=== PATIENT | female | born 1990 | race Two or more races ===

== ENCOUNTER → 2017-08-04 | Outpatient (REF) | payer OTHER ==
[2017-08-04 12:11] LABS: CHOLESTEROL LEVEL 179 MG/DL (<200); FERRITIN 34 NG/ML (8-252); FREE T4 1.25 NG/DL (0.76-1.46); TRIGLYCERIDES LEVEL 85 MG/DL (<150)
[2017-08-04 12:17] LABS: MEAN CORPUSCULAR HEMOGLOBIN 30.9 pg (27.0-33.0); MEAN CORPUSCULAR HGB CONC 33.3 g/dl (32.0-36.5); MEAN CORPUSCULAR VOLUME 92.6 fl (80.0-96.0); PLATELET COUNT, AUTOMATED 370 10^3/uL (150-450); RED CELL DISTRIBUTION WIDTH 11.7 % (11.5-14.5); WHITE BLOOD COUNT 4.4 10^3/uL (4.0-10.0)
[2017-08-04 13:10] LABS: VITAMIN B12 LEVEL 618 PG/ML (247-911)
== END ==
LOC: M SFHCCLAY 09:26
PROVIDERS: ATTEND Family Medicine
DX: Z00.00 Encounter for general adult medical examination without abnormal findings (principal); G43.109 Migraine with aura, not intractable, without status migrainosus

== ENCOUNTER → 2018-04-21 | Outpatient (REF) | payer OTHER | LOC: M LAB REF 18:26 | DX: Z12.4 Encounter for screening for malignant neoplasm of cervix (principal) ==

== ENCOUNTER → 2018-06-03 | Outpatient (REF) | payer OTHER ==
[2018-06-03 12:19] LABS: CHOLESTEROL LEVEL 152 MG/DL (<200); CHOLESTEROL RISK RATIO 2.375 (<5); HDL CHOLESTEROL 64 MG/DL (>40); LDL CHOLESTEROL 71 MG/DL (<100); NON-HDL-C 88 MG/DL; TRIGLYCERIDES LEVEL 83 MG/DL (<150)
== END ==
LOC: M LABDRAWC 11:19
DX: I63.9 Cerebral infarction, unspecified (principal)

== ENCOUNTER → 2018-07-08 | Outpatient (REF) | payer OTHER ==
[2018-07-09 11:37] LABS: INR 1.11; PROTHROMBIN TIME 14.5 SECONDS (12.1-14.4)
== END ==
LOC: M LABDRAWC 07-09 11:03
DX: I63.9 Cerebral infarction, unspecified (principal); Z79.01 Long term (current) use of anticoagulants

== ENCOUNTER → 2018-07-16 | Outpatient (REF) | payer OTHER ==
[2018-07-17 12:18] LABS: ANION GAP 9 MEQ/L (8-16); BLOOD UREA NITROGEN 9 MG/DL (7-18); CALCIUM LEVEL 9.9 MG/DL (8.5-10.1); CARBON DIOXIDE LEVEL 26 MEQ/L (21-32); CHLORIDE LEVEL 104 MEQ/L (98-107); CREATININE FOR GFR 0.63 MG/DL (0.55-1.30); GLOMERULAR FILTRATION RATE > 60.0 (>60); GLUCOSE, FASTING 75 MG/DL (70-100); POTASSIUM SERUM 4.2 MEQ/L (3.5-5.1); SODIUM LEVEL 139 MEQ/L (136-145)
[2018-07-17 12:23] LABS: BASO % 0.5 % (0.0-1.0); EOS % 0.5 % (0.0-3.0); HEMATOCRIT 40.6 % (36.0-47.0); HEMOGLOBIN 13.6 g/dl (12.0-15.5); IMMATURE GRANULOCYTE % 0.2 % (0-3.0); LYMPH # 2.2 10^3/uL (1.5-6.5); LYMPH % 38.7 % (24.0-44.0); MEAN CORPUSCULAR HEMOGLOBIN 30.6 pg (27.0-33.0); MEAN CORPUSCULAR HGB CONC 33.5 g/dl (32.0-36.5); MEAN CORPUSCULAR VOLUME 91.2 fl (80.0-96.0); MONO # 0.4 10^3/uL (0.0-0.8); MONO % 6.8 % (0.0-5.0); NEUTROPHILS % 53.3 % (36.0-66.0); PLATELET COUNT, AUTOMATED 316 10^3/uL (150-450); RED BLOOD COUNT 4.45 10^6/uL (4.00-5.40); RED CELL DISTRIBUTION WIDTH 11.1 % (11.5-14.5); WHITE BLOOD COUNT 5.6 10^3/uL (4.0-10.0)
== END ==
LOC: M LABDRAWC 11:47
DX: Q21.1 Atrial septal defect (principal)

== ENCOUNTER → 2018-07-16 | Outpatient (REF) | payer OTHER ==
[2018-07-17 12:32] LABS: INR 1.15; PROTHROMBIN TIME 14.9 SECONDS (12.1-14.4)
== END ==
LOC: M LABDRAWC 07-17 11:49
DX: I63.9 Cerebral infarction, unspecified (principal); Z79.01 Long term (current) use of anticoagulants

== ENCOUNTER 2019-03-28 10:43 | Emergency (ER) | payer MEDICAID, OTHER ==
[~2019-03-28] VITALS: Ht 154.9 cm; Wt 57.0 kg
[~2019-03-28 10:43] MED LIST: ADVI200C5 PO; JOLETAB; PERC5TAB12 PO
[2019-03-28 10:44] VITALS: BP 119/89
[2019-03-28] MEDS ORDERED: ASPI81TA85 PO (10:52)
[2019-03-28 11:43] LABS: BASO % 0.6 % (0.0-1.0); EOS # 0.1 10^3/uL (0.0-0.50); EOS % 1.1 % (0.0-3.0); HEMATOCRIT 41.6 % (36.0-47.0); LYMPH # 1.6 10^3/uL (1.5-6.5); MEAN CORPUSCULAR HEMOGLOBIN 31.8 pg (27.0-33.0); MEAN CORPUSCULAR HGB CONC 33.7 g/dl (32.0-36.5); MEAN CORPUSCULAR VOLUME 94.5 fl (80.0-96.0); MONO # 0.3 10^3/uL (0.0-0.8); MONO % 6.2 % (0.0-5.0); NEUTROPHILS # 2.7 10^3/uL (1.8-7.7); NEUTROPHILS % 56.9 % (36.0-66.0); PLATELET COUNT, AUTOMATED 287 10^3/uL (150-450); WHITE BLOOD COUNT 4.7 10^3/uL (4.0-10.0)
[2019-03-28 12:06] LABS: BLOOD UREA NITROGEN 8 MG/DL (7-18); CALCIUM LEVEL 9.1 MG/DL (8.5-10.1); CARBON DIOXIDE LEVEL 29 MEQ/L (21-32); CHLORIDE LEVEL 109 MEQ/L (98-107); CREATININE FOR GFR 0.71 MG/DL (0.55-1.30); GLOMERULAR FILTRATION RATE > 60.0 (>60); GLUCOSE, FASTING 88 MG/DL (70-100); POTASSIUM SERUM 4.3 MEQ/L (3.5-5.1); SODIUM LEVEL 143 MEQ/L (136-145)
[2019-03-28] MEDS ORDERED: ONDA4TAB6 PO (12:11)
[2019-03-28] MEDS ORDERED: ONDANSETRON 4 MG ORAL DISINTEGRATING TAB (Q0162 PER 1MG) PO ONE (12:15)
== END 2019-03-28 12:19 | disposition home or self-care (01) ==
LOC: M ED 10:43
DX: R11.0 Nausea (principal); R42 Dizziness and giddiness; R53.83 Other fatigue; Z86.73 Personal history of transient ischemic attack (TIA), and cerebral infarction without residual deficits; Z79.82 Long term (current) use of aspirin
CPT/HCPCS: 36415; 80048; 81001; 84702; 85025; 99283; Q0162

== ENCOUNTER → 2019-04-30 | Outpatient (REF) | payer MEDICAID ==
[~2019-04-30] MED LIST changes: +ASPI81TA85 PO; +ONDA4TAB6 PO
== END ==
LOC: M LAB REF 17:15
PROVIDERS: ATTEND Advanced Practice Midwife
DX: Z12.4 Encounter for screening for malignant neoplasm of cervix (principal)

== ENCOUNTER → 2019-06-01 | Outpatient (REF) | payer MEDICAID ==
[2019-06-01 19:51] LABS: BASO % 0.5 % (0.0-1.0); EOS # 0.1 10^3/uL (0.0-0.5); EOS % 1.4 % (0.0-3.0); HEMATOCRIT 40.1 % (36.0-47.0); HEMOGLOBIN 13.3 g/dl (12.0-15.5); LYMPH # 1.8 10^3/uL (1.5-5.0); LYMPH % 33.3 % (24.0-44.0); MEAN CORPUSCULAR HEMOGLOBIN 30.6 pg (27.0-33.0); MEAN CORPUSCULAR HGB CONC 33.2 g/dl (32.0-36.5); MEAN CORPUSCULAR VOLUME 92.4 fl (80.0-96.0); MONO # 0.3 10^3/uL (0.0-0.8); MONO % 5.6 % (0.0-5.0); NEUTROPHILS # 3.2 10^3/uL (1.5-8.5); NEUTROPHILS % 58.8 % (36.0-66.0); PLATELET COUNT, AUTOMATED 336 10^3/uL (150-450); RED BLOOD COUNT 4.34 10^6/uL (4.00-5.40); WHITE BLOOD COUNT 5.5 10^3/uL (4.0-10.0)
[2019-06-01 20:11] LABS: ALBUMIN 4.2 GM/DL (3.2-5.2); ALT/SGPT 24 U/L (12-78); BILIRUBIN,TOTAL 0.5 MG/DL (0.2-1.0); BLOOD UREA NITROGEN 8 MG/DL (7-18); CALCIUM LEVEL 9.6 MG/DL (8.5-10.1); CARBON DIOXIDE LEVEL 26 MEQ/L (21-32); CHLORIDE LEVEL 108 MEQ/L (98-107); CREATININE FOR GFR 0.66 MG/DL (0.55-1.30); GLOMERULAR FILTRATION RATE > 60.0 (>60); GLUCOSE, FASTING 89 MG/DL (70-100); POTASSIUM SERUM 4.6 MEQ/L (3.5-5.1); SODIUM LEVEL 142 MEQ/L (136-145); TOTAL PROTEIN 7.2 GM/DL (6.4-8.2)
[2019-06-01 20:20] LABS: TOTAL 25(OH) VITAMIN D 21.2 NG/ML (30.0-100.0)
[2019-06-01 20:21] LABS: FOLATE 14.8 NG/ML; VITAMIN B12 LEVEL 542 PG/ML
[2019-06-09 11:48] LABS: VITAMIN B1 LEVEL WHOLE BLOOD 122.8 nmol/L (66.5-200.0); VITAMIN B6,PYRIDOXAL PHOSPHATE 7.6 ug/L (2.0-32.8); VITAMIN E(ALPHA TOCOPHEROL) 11.8 mg/L (5.9-19.4); VITAMIN E(GAMMA TOCOPHEROL) 1.4 mg/L (0.7-4.9)
== END ==
LOC: M LABDRAWC 19:10
PROVIDERS: ATTEND Psychiatry & Neurology Neurology
DX: R42 Dizziness and giddiness (principal); R51 Headache

== ENCOUNTER → 2019-06-18 | Outpatient (REF) | payer MEDICAID | LOC: M LAB REF 17:36 | PROVIDERS: ATTEND Advanced Practice Midwife | DX: R87.615 Unsatisfactory cytologic smear of cervix (principal) ==

== ENCOUNTER 2020-02-06 20:17 | Emergency (ER) | payer MEDICAID, OTHER ==
[~2020-02-06] VITALS: Ht 154.9 cm; Wt 54.5 kg
[2020-02-06 20:57] LABS: BASO % 0.4 % (0.0-1.0); EOS # 0.1 10^3/uL (0.0-0.5); EOS % 1.3 % (0.0-3.0); HEMATOCRIT 41.1 % (36.0-47.0); HEMOGLOBIN 13.7 g/dl (12.0-15.5); LYMPH # 2.2 10^3/uL (1.5-5.0); MEAN CORPUSCULAR HEMOGLOBIN 31.1 pg (27.0-33.0); MEAN CORPUSCULAR HGB CONC 33.3 g/dl (32.0-36.5); MEAN CORPUSCULAR VOLUME 93.2 fl (80.0-96.0); MONO # 0.4 10^3/uL (0.0-0.8); MONO % 7.7 % (0.0-5.0); NEUTROPHILS # 2.8 10^3/uL (1.5-8.5); NEUTROPHILS % 50.2 % (36.0-66.0); PLATELET COUNT, AUTOMATED 332 10^3/uL (150-450); RED BLOOD COUNT 4.41 10^6/uL (4.00-5.40); WHITE BLOOD COUNT 5.6 10^3/uL (4.0-10.0)
[2020-02-06] MEDS ORDERED: ISOVUE-370 76% 100ML VIAL As Ordered ONE (21:05)
[2020-02-06 21:13] LABS: INR 0.95; PARTIAL THROMBOPLASTIN TIME 26.4 SECONDS (25.0-38.4); PROTHROMBIN TIME 12.4 SECONDS (11.8-14.0)
[2020-02-06 21:24] LABS: C REACTIVE PROTEIN QUANTITATIV < 0.30 MG/DL (0.00-0.30); LDH LACTATE DEHYDROGENASE 156 U/L (84-246)
[2020-02-06 21:29] LABS: D-DIMER QUANT < 270 ng/ml (<500)
[2020-02-06 22:45] VITALS: BP 114/75
--- NOTE | 2020-02-07 20:25 | ECGEPIP ---
[facility] - ED Test Date: 2020-02-06 Pat Name: NUHA PIERRE Department: Room: - Gender: Female [employer]: : 1990 Requested By: SIOMARA ABDULLAHI Order Number: [id number] Reading MD: Kyle Bustamante Measurements Intervals [place] Rate: 75 P: -4 AK: 122 QRS: 7 QRSD: 92 T: 21 QT: 397 QTc: 444 Interpretive Statements SINUS RHYTHM WITH MARKED SINUS ARRHYTHMIA Comparison tracing not on file Electronically Signed on 02-07-2020 20:25:04 EDT by Kyle Bustamante
--- NOTE | 2020-02-08 10:53 | REP ---
REASON: Weakness. COMPARISON: 03/30/2018. Preliminary report given by [facility] at the time the exam was performed. 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 There is no acute intracranial pathology. There is no shift in the midline structures. There is no mass effect. The ventricles and sulci are within normal limits. There is no evidence of an acute intracranial hemorrhage or nonhemorrhagic event. The paranasal sinuses and mastoid air cells are unchanged and again seen to be clear. There is no skull fracture. IMPRESSION: Chronic changes as described above. Electronically Signed by Koffi Sanon DO 02/08/2020 12:07 P
--- NOTE | 2020-02-08 11:56 | REP ---
CT ANGIOGRAM OF THE NECK: CT angiogram neck performed following the intravenous administration of 100 mL of Isovue 370. Sagittal, coronal and 3D MIP reconstruction images are performed. The aortic arch is normal in caliber. Both subclavian arteries are widely patent. Both common carotid arteries and internal carotid arteries are widely patent with no significant narrowing or stenosis. Cervical portions of the vertebral arteries are patent and symmetrical with no evidence of stenosis. Soft tissues of the neck are unremarkable. Osseous structures are intact. IMPRESSION: No evidence of cervical common carotid artery or internal carotid artery narrowing or stenosis. Preliminary report provided by [facility] at the time of the exam. Electronically Signed by Lionel Acosta MD 02/08/2020 05:09 P
--- NOTE | 2020-02-08 12:01 | REP ---
CT ANGIOGRAM OF THE BRAIN: CT angiogram of the brain are performed following the intravenous administration of 100 mL Isovue 370. Sagittal and coronal and 3D MIP reconstruction images are performed. The intracranial internal carotid arteries are widely patent and symmetrical. Anterior, middle and posterior cerebral arteries are symmetrical and patent. Anterior communicating arteries are patent. Much of the flow to the right posterior cerebral artery is provided by a right posterior communicating artery communicating with the supraclinoid right internal carotid artery. No aneurysm or AVM is seen. IMPRESSION: NO evidence of arterial occlusion or stenosis. No aneurysm. Preliminary report provided by [facility] at the time of the exam. Electronically Signed by Lionel Acosta MD 02/08/2020 05:09 P
== END 2020-02-06 23:19 | disposition home or self-care (01) ==
LOC: M ED 20:17
DX: R20.2 Paresthesia of skin (principal); I49.9 Cardiac arrhythmia, unspecified; I69.334 Monoplegia of upper limb following cerebral infarction affecting left non-dominant side; G43.909 Migraine, unspecified, not intractable, without status migrainosus; Z79.82 Long term (current) use of aspirin; Z79.899 Other long term (current) drug therapy
CPT/HCPCS: 70450; 70496; 70498; 80047; 83615; 84702; 85025; 85379; 85610; 85730; 86140; 93005; 99285; Q9967

== ENCOUNTER → 2020-05-23 | Outpatient (REF) | payer OTHER ==
[~2020-05-23] MED LIST changes: -ASPI81TA85 PO; +ASPI81TA86 PO
== END ==
LOC: M SFHCWAGY 17:10
PROVIDERS: ATTEND Advanced Practice Midwife
DX: Z12.4 Encounter for screening for malignant neoplasm of cervix (principal); N88.8 Other specified noninflammatory disorders of cervix uteri

== ENCOUNTER → 2020-06-12 | Outpatient (REF) | payer MEDICAID ==
[2020-06-13 13:38] LABS: HEMOGLOBIN 13.3 g/dl (12.0-15.5); MEAN CORPUSCULAR HEMOGLOBIN 30.5 pg (27.0-33.0); MEAN CORPUSCULAR HGB CONC 32.4 g/dl (32.0-36.5); PLATELET COUNT, AUTOMATED 357 10^3/uL (150-450); RED BLOOD COUNT 4.36 10^6/uL (4.00-5.40); WHITE BLOOD COUNT 6.4 10^3/uL (4.0-10.0)
[2020-06-13 14:31] LABS: THYROID STIMULATING HORMONE 0.784 uIU/ML (0.358-3.740)
== END ==
LOC: M SFHCCLAY 14:37
PROVIDERS: ATTEND Physician Assistant
DX: L65.9 Nonscarring hair loss, unspecified (principal)

== ENCOUNTER → 2020-10-25 | Outpatient (REF) | payer OTHER ==
[2020-10-25 10:09] LABS: HEMATOCRIT 38.5 % (36.0-47.0); HEMOGLOBIN 12.8 g/dl (12.0-15.5); MEAN CORPUSCULAR HEMOGLOBIN 30.7 pg (27.0-33.0); MEAN CORPUSCULAR HGB CONC 33.2 g/dl (32.0-36.5); MEAN CORPUSCULAR VOLUME 92.3 fl (80.0-96.0); PLATELET COUNT, AUTOMATED 290 10^3/uL (150-450); RED BLOOD COUNT 4.17 10^6/uL (4.00-5.40); WHITE BLOOD COUNT 5.3 10^3/uL (4.0-10.0)
[2020-10-25 10:35] LABS: ALT/SGPT 53 U/L (12-78); BILIRUBIN,TOTAL 0.5 MG/DL (0.2-1.0); CREATININE FOR GFR 0.58 MG/DL (0.55-1.30); GLOMERULAR FILTRATION RATE > 60.0 (>60); LDH LACTATE DEHYDROGENASE 135 U/L (84-246); URIC ACID 3.1 MG/DL (2.6-6.0)
[2020-10-25 11:23] LABS: HEPATITIS C VIRUS ABY INDEX 0.1 INDEX (<0.8); HIV 1&2 SCREEN CENTAUR NEGATIVE (NEGATIVE)
[2020-10-25 12:13] LABS: CHLAMYDIA DNA AMPLIFICATION NEGATIVE (NEGATIVE); GC DNA AMPLIFICATION NEGATIVE (NEGATIVE)
== END ==
LOC: M PLALAB 08:51
PROVIDERS: ATTEND Advanced Practice Midwife
DX: O34.211 Maternal care for low transverse scar from previous cesarean delivery (principal)

== ENCOUNTER → 2020-12-02 | Outpatient (CLI) | payer OTHER | LOC: M LABSMTC 11:06 | PROVIDERS: ATTEND Anesthesiology | DX: Z01.812 Encounter for preprocedural laboratory examination (principal) ==

== ENCOUNTER 2020-12-07 12:34 | Day surgery (SDC) | payer OTHER ==
[~2020-12-07] VITALS: Ht 154.9 cm; Wt 61.3 kg
[~2020-12-07 12:34] MED LIST changes: +ASPI1CHW3 PO; +D3 M1CAP2 PO; +LIDOCAINE 1% SDV 30ML VIAL As Ordered ONE; +LR 1,000 ML IV ONE; +PRENTAB53 PO; +ceFAZolin SOD 1 GM in D5W MINI-BAG PLUS 50 ML IV ONE; +propofoL 200 MG/20 ML VIAL As Ordered ONE
[2020-12-07] MEDS ORDERED: ONDANSETRON 4MG/2ML VIAL As Ordered ONE (13:46)
[2020-12-07 15:15] VITALS: BP 118/75
--- NOTE | 2020-12-07 15:17 | RO ---
OPERATIVE NOTE DATE OF OPERATION: 12/07/2020 PREOPERATIVE DIAGNOSIS: Subcutaneous cardiac rhythm monitor in situ. PREOPERATIVE DIAGNOSIS: Subcutaneous cardiac rhythm monitor in situ. FINDINGS: Subcutaneous cardiac rhythm monitor in situ. PROCEDURE PERFORMED: Removal of subcutaneous cardiac rhythm monitor. SURGEON: Kyle Chavez M.D. POULTRY HELPER: None. ANESTHESIA: Lidocaine 1% local/monitored anesthetic care. SPECIMENS: Medtronic LINQ subcutaneous cardiac rhythm monitor. ESTIMATED BLOOD LOSS: 2 mL. BLOOD PRODUCTS: No blood products were placed. DRAINS: None. COMPLICATIONS: None. PROCEDURE DESCRIPTION: The patient was prepped and draped over the left anterior chest. Lidocaine 1% was used for local anesthetic. A #15 blade was used to make an incision through the skin approximately 1 cm in length over the superior aspect of the subcutaneous cardiac rhythm monitor. The cardiac rhythm monitor was gripped with a snap and removed from the pocket. The skin was then approximated temporarily using a 4-0 Biosyn suture applied subcuticular with the free ends protruding 1 cm from either end of the incision line. Next, three coats of Dermabond were applied. The Biosyn suture was then pulled through the incision and removed entirely. The patient tolerated the procedure well without any immediate complications.
== END 2020-12-07 15:16 | disposition home or self-care (01) ==
LOC: M SDC 12:34
PROVIDERS: ATTEND Internal Medicine Cardiovascular Disease
DX: Z45.09 Encounter for adjustment and management of other cardiac device (principal); Q21.1 Atrial septal defect; K21.9 Gastro-esophageal reflux disease without esophagitis; Z86.73 Personal history of transient ischemic attack (TIA), and cerebral infarction without residual deficits; Z79.82 Long term (current) use of aspirin; Z33.1 Pregnant state, incidental
CPT/HCPCS: 33286; J0690

== ENCOUNTER → 2021-01-01 | Outpatient (CLI) | payer OTHER ==
[~2021-01-01] MED LIST changes: -LIDOCAINE 1% SDV 30ML VIAL As Ordered ONE; -LR 1,000 ML IV ONE; -ceFAZolin SOD 1 GM in D5W MINI-BAG PLUS 50 ML IV ONE; -propofoL 200 MG/20 ML VIAL As Ordered ONE
--- NOTE | 2021-01-01 15:52 | REP ---
INDICATION: ANATOMY. COMPARISON: None. TECHNIQUE: Real-time sonographic evaluation of the gravid uterus performed. FINDINGS: Estimated gestational age is18 weeks 4 days, EDC 05/31/2021. Today's measurements indicate appropriate growth. Presentation: Variable Placenta anterior, grade 1, without evidence of placenta previa. heart rate is recorded at 153 beats per minute. Amniotic fluid is subjectively normal. Closed cervical length is measured at 5.1 cm. Biometry chart: BPD: 40 mm, 18 weeks 1 days, 39th percentile. HC: 152 mm, 18 weeks 2 days, 40th percentile AC: 128 mm, 18 weeks 3 days, 46th percentile Femur length: 28 mm, 18 weeks 4 days, 51st percentile HC to AC ratio: 1.19, normal range 1.07-1.26. Estimated weight: 241g, 39th percentile. anatomy: Cranium: Grossly normal Lateral Ventricles/Choroid Plexus: Grossly normal Posterior Fossa/Cerebellum: Grossly normal Nose/lips/profile: Grossly normal Four chamber heart: Not well seen. Right ventricular outflow tract: Not well seen. Left ventricular outflow tract: Not well seen. Left-sided stomach: Grossly normal Kidneys: Grossly normal Bladder: Grossly normal Cord Insertion: Grossly normal 3 vessel cord: Grossly normal Spine: Grossly normal IMPRESSION: Viable single intrauterine gestation as above. Heart structures are not well visualized. <Electronically signed by Lionel Acosta > 01/01/21 [id number]
== END ==
LOC: M WHC 13:57
PROVIDERS: ATTEND Advanced Practice Midwife
DX: O34.211 Maternal care for low transverse scar from previous cesarean delivery (principal)

== ENCOUNTER → 2021-02-09 | Outpatient (CLI) | payer OTHER ==
--- NOTE | 2021-02-09 09:14 | REP ---
INDICATION: F/U ANATOMY COMPARISON: 01/01/2021 TECHNIQUE: Transabdominal obstetrical ultrasound with color Doppler evaluation. FINDINGS: Examination demonstrates a single live intrauterine in transverse (head to maternal right) presentation. motion is identified by technologist. Placenta is noted anterior and grade 1 without evidence for placenta previa or abruption. Amniotic fluid volume is normal. Cervix measures 4.6 cm in length and appears closed.. Selected gestational age: 24 weeks 1 day with ZULEYKA 05/31/2021. Gestational age by current measurements 24 weeks 0 days with ZULEYKA 06/01/2021. FHR equals 149 beats per minute. Estimated weight 689 grams (52ndpercentile). Anatomical assessment demonstrates normal structures including cranium, choroid plexus, cavum, cerebellum/posterior fossa, facial features, lungs, four-chamber heart/ventricular outflow tracts, diaphragm, stomach, cord insertion/three-vessel cord, kidneys/bladder, and extremities. IMPRESSION: Single live intrauterine demonstrating appropriate estimated weight and growth. In conjunction with prior examination anatomical assessment is complete and normal. <Electronically signed by Robert Fernandes > 02/09/21 [id number]
== END ==
LOC: M WHC 07:57
PROVIDERS: ATTEND Advanced Practice Midwife
DX: O34.211 Maternal care for low transverse scar from previous cesarean delivery (principal)

== ENCOUNTER → 2021-03-15 | Outpatient (CLI) | payer OTHER ==
[2021-03-15 13:34] LABS: HEMATOCRIT 33.6 % (36.0-47.0); HEMOGLOBIN 11.1 g/dl (12.0-15.5); MEAN CORPUSCULAR HEMOGLOBIN 31.5 pg (27.0-33.0); MEAN CORPUSCULAR VOLUME 95.5 fl (80.0-96.0); PLATELET COUNT, AUTOMATED 226 10^3/uL (150-450); RED BLOOD COUNT 3.52 10^6/uL (4.00-5.40); WHITE BLOOD COUNT 7.6 10^3/uL (4.0-10.0)
== END ==
LOC: M PLALAB 08:49
PROVIDERS: ATTEND Advanced Practice Midwife
DX: O34.211 Maternal care for low transverse scar from previous cesarean delivery (principal)

== ENCOUNTER → 2021-05-03 | Outpatient (REF) | payer OTHER | LOC: M SFHCWAGY 18:11 | PROVIDERS: ATTEND Obstetrics & Gynecology | DX: O34.211 Maternal care for low transverse scar from previous cesarean delivery (principal) ==

== ENCOUNTER → 2021-05-19 | Outpatient (CLI) | payer OTHER | LOC: M LABSMTC 09:04 | PROVIDERS: ATTEND Anesthesiology | DX: Z01.812 Encounter for preprocedural laboratory examination (principal); Z20.822 Contact with and (suspected) exposure to COVID-19 ==

== ENCOUNTER 2021-05-24 05:24 | Inpatient (IN) | payer OTHER ==
[~2021-05-24] VITALS: Ht 154.9 cm; Wt 81.1 kg
[2021-05-24] MEDS ORDERED: TUMS500C PO (05:43)
[2021-05-24 06:00] VITALS: BP 103/68
[2021-05-24] MEDS ORDERED: LR 1,000 ML IV ONE (06:00)
[2021-05-24] MEDS ORDERED: BICITRA 30ML SOLN UDC PO ONE (06:00)
[2021-05-24 06:17] LABS: HEMATOCRIT 33.5 % (36.0-47.0); HEMOGLOBIN 11.9 g/dl (12.0-15.5); MEAN CORPUSCULAR HEMOGLOBIN 32.4 pg (27.0-33.0); MEAN CORPUSCULAR HGB CONC 35.5 g/dl (32.0-36.5); MEAN CORPUSCULAR VOLUME 91.3 fl (80.0-96.0); PLATELET COUNT, AUTOMATED 201 10^3/uL (150-450); RED BLOOD COUNT 3.67 10^6/uL (4.00-5.40); WHITE BLOOD COUNT 7.3 10^3/uL (4.0-10.0)
[2021-05-24] MEDS ORDERED: LR 1,000 ML IV SCH (07:00)
[2021-05-24] MEDS ORDERED: fentaNYL 100 MCG/2 ML INJECTION (J3010) As Ordered ONE (07:51)
[2021-05-24] MEDS ORDERED: ONDANSETRON 4MG/2ML VIAL As Ordered ONE (07:51)
[2021-05-24] MEDS ORDERED: OXYTOCIN INJ 10 UNITS/ML VIAL (J2590) As Ordered ONE (07:51)
[2021-05-24] MEDS ORDERED: dexameTHASONE 4 MG/ML 1ML VIAL (J1100 PER 1MG) As Ordered ONE (07:51)
[2021-05-24] MEDS ORDERED: KETOROLAC 60MG 2ML VIAL As Ordered ONE (07:51)
[2021-05-24] MEDS ORDERED: MORPHINE PRES-FREE INJ 10 MG/10 ML VIAL (J2274) As Ordered ONE (07:52)
[2021-05-24] MEDS: ceFAZolin SOD 1 GM in D5W MINI-BAG PLUS 50 ML IV SCH (08:55)
[2021-05-24] MEDS ORDERED: ONDANSETRON 4MG/2ML VIAL IV PRN ×3 (09:02→10:35)
[2021-05-24] MEDS ORDERED: NALOXONE INJ 0.4MG/1ML VIAL (J2310 PER 1MG) IV PRN ×2 (09:02)
[2021-05-24] MEDS ORDERED: NALBUPHINE HCL 10 MG/ML AMP (J2300) IV PRN (09:02)
[2021-05-24] MEDS ORDERED: METOCLOPRAMIDE INJ 10MG/2ML VIAL (J2765 PER 1) IV PRN (09:02)
[2021-05-24] MEDS ORDERED: diphenhydrAMINE 50MG/ML VIAL (J1200) IV PRN (09:02)
[2021-05-24] MEDS ORDERED: ePHEDrine SULFATE 25 MG/5 ML(5MG/ML) SYRINGE As Ordered ONE (09:57)
[2021-05-24] MEDS ORDERED: PHENYLephrine 500MCG 5ML (100MCG/ML) SYRINGE As Ordered ONE (09:57)
--- NOTE | 2021-05-24 10:19 | ROOPDOC ---
[facility] Report Of Operation Report of Operation DATE OF PROCEDURE: 05/24/2021 PREPROCEDURE DIAGNOSES: 39+ weeks gestation, history of low transverse section x2 POSTPROCEDURE DIAGNOSES: Same PROCEDURE: Repeat low transverse section SURGEON: Jeff Ramos DO FACOG ANDROID FRAMEWORK DEVELOPER: Mary Nesbitt MD (Essential role in retraction, extraction, and closure of all tissue layers) ANESTHESIA: Spinal with Duramorph ESTIMATED BLOOD LOSS: 500 mL. IV FLUIDS: 2000 mL LR URINE OUTPUT: 400 mL COMPLICATIONS: None. PREOPERATIVE ANTIBIOTICS: Ancef 2g IV x 1. COMPLICATIONS: none DATA: Apgars 9 and 9. Birthweight 3530 g, 7 lbs 13 oz. SPECIMENS: none PRIMARY INDICATION FOR : History of low transverse section x2 DESCRIPTION OF PROCEDURE: The patient was counseled on the risks, benefits, indications and alternatives of the procedure. Informed consent was obtained. She was taken to the operating room with IV running and placed on the operating table in the dorsal supine position with a leftward tilt. Regional anesthesia was found to be adequate. Sequential compression devices were placed on the lower extremities. A Little catheter was placed under sterile conditions. She was prepared and draped in normal sterile fashion. A time out was performed per protocol. Regional anesthesia was again found to be adequate. A Pfannenstiel skin incision was made with the 10 blade. The 10 blade was used to dissect down to the level of the rectus sheath fascia. The rectus sheath pressure was incised midline and this was extended bilaterally with Manuel scissors, and manual stretch. The rectus muscle bellies were dissected off the rectus sheath fascia superiorly and inferiorly using both sharp and blunt dissection. The midline was identified. The peritoneum was identified and entered digitally. The peritoneal opening was extended with manual stretch. The Mobius retractor was placed. The vesicouterine peritoneum was dissected with Metzenbaum scissors to create the bladder flap. A low transverse uterine incision was made with the 10 blade. This was extended with manual stretch. The amniotic sac was punctured, and clear fluid was noted. The baby delivered through the hysterotomy without difficulty. The cord was doubly clamped and cut, and the baby was handed off to awaiting care. data shown above. The placenta was removed manually. The intrauterine cavity was cleared of all clot and debris. The hysterotomy was closed with 0 Vicryl in running locked fashion. This was reinforced with a second imbricating layer using 0 Monocryl in running fashion. Excellent hemostasis of the hysterotomy was noted. The pelvis was irrigated and the fluid suctioned. The Mobius retractor was removed. The peritoneum was closed with 3-0 Vicryl running fashion. The rectus muscle bellies were reapproximated with interrupted stitches using 3-0 Vicryl. The rectus muscles bellies were hemostatic. The rectus sheath fascia was closed with 0 Vicryl running fashion. The subcutaneous layer was irrigated and the fluid suctioned. Small bleeding vessels were cauterized with Bovie. Excellent hemostasis was noted. The subcutaneous layer was reapproximated with 3-0 Vicryl running fashion. Skin was closed with 3-0 Monocryl in subcuticular fashion. An Optifoam bandage was placed over the closed incision. Sponge, needle and instrument counts were correct per protocol throughout the procedure. The patient tolerated the entire procedure very well. She was transferred to the PACU in stable condition. DO CARLEEN Maldonado JONATHAN R. DO May 24, 2021 10:19
[2021-05-24] MEDS ORDERED: RHOGAM 300 MCG (1500 IU) INJ (J2790) IM SCH (10:20)
[2021-05-24] MEDS ORDERED: PERCOCET 5MG/325MG TAB PO PRN ×2 (10:20→10:35)
[2021-05-24] MEDS ORDERED: OXYTOCIN DRIP 30 UNITS in IV 1 EA IV SCH (10:20)
[2021-05-24] MEDS ORDERED: MEASLES,MUMPS,RUBELLA VACCINE INJ (MMR-II) (90707) SC SCH (10:20)
[2021-05-24] MEDS ORDERED: SIMETHICONE 80MG CHEW TAB PO PRN (10:20)
[2021-05-24] MEDS ORDERED: OXYTOCIN 30 UNITS IN 0.9% NaCl 500ML IV BAG (J2590) As Ordered ONE (10:28)
[2021-05-24] MEDS ORDERED: DOCU100C16 PO (10:32)
[2021-05-24] MEDS ORDERED: LOVE1INJ SC (10:32)
[2021-05-24] MEDS ORDERED: PERCOCET PO (10:32)
[2021-05-24] MEDS ORDERED: IBUP80TA PO (10:32)
[2021-05-24] MEDS ORDERED: MEPERIDINE INJ 25 MG/ML VIAL (J2175) IV PRN (10:35)
[2021-05-24] MEDS ORDERED: fentaNYL 100 MCG/2 ML INJECTION (J3010) IV PRN (10:35)
[2021-05-24] MEDS ORDERED: diphenhydrAMINE 50MG/ML VIAL (J1200) As Ordered ONE (10:57)
[2021-05-24 11:40] VITALS: BP 137/83
[2021-05-24 12:00] VITALS: BP 137/83
[2021-05-24 12:10] VITALS: BP 122/88
[2021-05-24 13:10] VITALS: BP 122/78
[2021-05-24] MEDS: KETOROLAC 30 MG/ML 1ML VIAL IV SCH ×2 (16:43→22:01)
[2021-05-24] MEDS: ENOXAPARIN 40MG/0.4ML SYRINGE (J1650 PER 10MG) SC SCH (16:44)
[2021-05-24 18:00] VITALS: BP 108/65
[2021-05-24] MEDS: DOCUSATE SODIUM 100MG CAPSULE PO SCH (20:12)
[2021-05-25 02:00] VITALS: BP 129/66
[2021-05-25] MEDS: KETOROLAC 30 MG/ML 1ML VIAL IV SCH (04:42)
[2021-05-25 05:32] VITALS: BP 132/76
[2021-05-25 07:30] LABS: HEMATOCRIT 27.4 % (36.0-47.0); MEAN CORPUSCULAR HEMOGLOBIN 31.7 pg (27.0-33.0); MEAN CORPUSCULAR HGB CONC 33.9 g/dl (32.0-36.5); MEAN CORPUSCULAR VOLUME 93.5 fl (80.0-96.0); PLATELET COUNT, AUTOMATED 180 10^3/uL (150-450); RED BLOOD COUNT 2.93 10^6/uL (4.00-5.40); WHITE BLOOD COUNT 10.3 10^3/uL (4.0-10.0)
[2021-05-25 07:46] LABS: GLOMERULAR FILTRATION RATE > 60.0 (>60)
[2021-05-25 08:05] LABS: HEMOGLOBIN 9.3 g/dl (12.0-15.5)
[2021-05-25] MEDS: DOCUSATE SODIUM 100MG CAPSULE PO SCH ×2 (09:04→20:52)
[2021-05-25] MEDS: PRENATAL VITAMINS CHEWABLE TABLET PO SCH (09:04)
[2021-05-25 09:54] VITALS: BP 134/83
[2021-05-25] MEDS: IBUPROFEN 800 MG TAB PO SCH ×2 (13:12→20:52)
[2021-05-25 15:32] VITALS: BP 134/87
[2021-05-25] MEDS: ENOXAPARIN 40MG/0.4ML SYRINGE (J1650 PER 10MG) SC SCH (15:38)
[2021-05-25 17:59] VITALS: BP 127/80
[2021-05-25] MEDS: PERCOCET 5MG/325MG TAB PO PRN (19:31)
[2021-05-25 22:00] VITALS: BP 121/79
[2021-05-26 02:00] VITALS: BP 142/89
[2021-05-26] MEDS: IBUPROFEN 800 MG TAB PO SCH ×2 (05:00→11:28)
[2021-05-26 05:39] VITALS: BP 137/83
[2021-05-26] MEDS: PRENATAL VITAMINS CHEWABLE TABLET PO SCH (07:57)
[2021-05-26] MEDS: DOCUSATE SODIUM 100MG CAPSULE PO SCH (07:58)
--- NOTE | 2021-05-26 12:11 | DS.PDOC ---
Discharge Summary General Date of Admission May 24, 2021 at 05:24 Date of Discharge May 26, 2021 Discharge Summary PROCEDURES PERFORMED DURING STAY: [None]. ADMITTING DIAGNOSES: 1. 39 weeks, prior section x2. DISCHARGE DIAGNOSES: 1. Same. COMPLICATIONS/CHIEF COMPLAINT: Term prior section HISTORY OF PRESENT ILLNESS: 30-year-old female 39 weeks gestation presents for repeat section. She had 2 prior sections. HOSPITAL COURSE: 30-year-old female 39 weeks gestation presents for repeat section. She had 2 prior sections. On May 24, 2021 she underwent a repeat section for a viable infant. There were no complications. Her postoperative course was unremarkable. Her postoperative hemoglobin was 9.3 g/dL. She had adequate return of bladder bowel function. She was deemed stable for discharge on postoperative day #2. DISCHARGE MEDICATIONS: Please see below. ALLERGIES: Please see below. PHYSICAL EXAMINATION ON DISCHARGE: VITAL SIGNS: Please see below. GENERAL: NAD HEENT: Within normal limits CARDIOVASCULAR EXAMINATION: RRR RESPIRATORY EXAMINATION: Clear to auscultation ABDOMINAL EXAMINATION: Nontender, incision clean dry intact fundus firm EXTREMITIES: Nontender LABORATORY DATA: Please see below. PROGNOSIS: Good ACTIVITY: As tolerated. DIET: Regular DISCHARGE PLAN: Home DISCHARGE INSTRUCTIONS: 1. Discharge home today 2. Instructions reviewed 3. Remove dressing postop day #5 4. Pain management DISCHARGE CONDITION: Stable TIME SPENT ON DISCHARGE: 10 minutes. Vital Signs/I&Os Vital Signs Date Time Temp Pulse Resp B/P (MAP) Pulse Ox O2 Delivery O2 Flow Rate FiO2 05/26/21 05:39 98.3 84 18 137/83 (101) 05/26/21 02:00 97 05/25/21 20:52 Room Air I&O- Last 24 Hours up to 6 AM 05/26/21 06:00 Intake Total 200 ml Balance 200 ml Discharge Medications Scheduled Aspirin (Aspirin) 81 Mg Tab.chew, 81 MG PO DAILY, (Reported) Calcium Carbonate (Tums) 200 Mg Tab.chew, 2 TAB PO QID for cough and congestion, (Reported) Cholecalciferol (Vitamin D3) (Vitamin D3) 125 Mcg Capsule, 125 MCG PO DAILY, (Reported) Docusate Sodium (Docusate Sodium) 100 Mg Capsule, 100 MG PO BID Enoxaparin Sodium (Lovenox) 40 Mg/0.4 Ml Syringe, 40 MG SC DAILY Ibuprofen (Ibuprofen) 800 Mg Tablet, 800 MG PO Q8H Vit,Calc76/Iron/Folic (Prenatabs Rx Tablet) 1 Each Tablet, 1 TAB PO DAILY, (Reported) Scheduled PRN Oxycodone/Acetaminophen (Oxycodone-Acetaminophen 5-325) 1 Each Tablet, 1 TAB PO Q4H PRN for MODERATE PAIN (PS 5-7) Allergies Coded Allergies: No Known Allergies (Unverified , 05/24/21) GABY RODRÍGUEZ MD May 26, 2021 12:11
[2021-05-26] MEDS: PERCOCET 5MG/325MG TAB PO PRN (12:47)
== END 2021-05-26 13:05 | disposition home or self-care (01) | DRG 540 ==
LOC: M LDI 05:24 → M OBS 11:48
PROVIDERS: ADMIT Obstetrics & Gynecology; ATTEND Obstetrics & Gynecology
PROC: 10D00Z1 Extraction of Products of Conception, Low, Open Approach (ICD-10-PCS; principal; 2021-05-24 07:30)
DX: O34.211 Maternal care for low transverse scar from previous cesarean delivery (principal); Z3A.39 39 weeks gestation of pregnancy; Z37.0 Single live birth

== ENCOUNTER → 2022-06-07 | Outpatient (REF) | payer OTHER ==
[~2022-06-07] MED LIST changes: +DOCU100C16 PO; +IBUP80TA PO; +LOVE1INJ SC; +PERCOCET PO; +TUMS500C PO
[2022-06-07 11:13] LABS: BASO % 0.5 % (0.0-1.0); EOS # 0.1 10^3/uL (0.0-0.5); EOS % 1.9 % (0.0-3.0); HEMATOCRIT 42.6 % (36.0-47.0); HEMOGLOBIN 14.3 g/dl (12.0-15.5); LYMPH # 1.5 10^3/uL (1.5-5.0); MEAN CORPUSCULAR HEMOGLOBIN 31.1 pg (27.0-33.0); MEAN CORPUSCULAR HGB CONC 33.6 g/dl (32.0-36.5); MEAN CORPUSCULAR VOLUME 92.6 fl (80.0-96.0); MONO # 0.2 10^3/uL (0.0-0.8); MONO % 6.6 % (2.0-8.0); NEUTROPHILS # 1.9 10^3/uL (1.5-8.5); NEUTROPHILS % 50.7 % (36.0-66.0); PLATELET COUNT, AUTOMATED 298 10^3/uL (150-450); WHITE BLOOD COUNT 3.7 10^3/uL (4.0-10.0)
[2022-06-07 12:10] LABS: ALBUMIN 4.1 GM/DL (3.2-5.2); ALT/SGPT 39 U/L (12-78); BILIRUBIN,TOTAL 0.3 MG/DL (0.2-1.0); BLOOD UREA NITROGEN 13 MG/DL (7-18); CALCIUM LEVEL 9.7 MG/DL (8.5-10.1); CARBON DIOXIDE LEVEL 29 MEQ/L (21-32); CHLORIDE LEVEL 104 MEQ/L (98-107); CREATININE FOR GFR 0.64 MG/DL (0.55-1.30); GLOMERULAR FILTRATION RATE > 60.0 (>60); GLUCOSE, FASTING 75 MG/DL (70-100); MAGNESIUM LEVEL 2.2 MG/DL (1.8-2.4); POTASSIUM SERUM 4.5 MEQ/L (3.5-5.1); SODIUM LEVEL 137 MEQ/L (136-145); TOTAL PROTEIN 7.4 GM/DL (6.4-8.2)
[2022-06-07 12:47] LABS: VITAMIN B12 LEVEL 775 PG/ML (247-911)
== END ==
LOC: M SFHCCLAY 09:14
PROVIDERS: ATTEND Physician Assistant
DX: G60.9 Hereditary and idiopathic neuropathy, unspecified (principal)